=== PATIENT | male | born 1995 | race Hispanic/Latino ===

== ENCOUNTER 2017-03-17 11:46 | Emergency (ER) | payer BC ==
[2017-03-17 11:53] VITALS: BP 117/75; PULSE 66; RESP 19; TEMP 98.8; O2SAT 100
--- NOTE | 2017-03-17 12:16 | ED PDOC ---
HPI: General Adult Time Seen by Provider: 03/17/17 12:00 Chief Complaint (Nursing): Headache Chief Complaint (Provider): neck pain History Per: Patient History/Exam Limitations: no limitations Additional Complaint(s): 22yo male was playing hockey last night when he fell and was hit in the neck. States he heard a cracking sound and then experienced right shoulder numbness with some neck pain. Denies any pain to the shoulder. declines offer of analgesics stating he took advil prior to arrival which is working for him. Pt finished hockey game after injury. Numbness resolved yesterday. Past Medical History Reviewed: Historical Data, Nursing Documentation, Vital Signs Vital Signs: Last Vital Signs Temp 98.8 F 03/17/17 11:50 Pulse 66 03/17/17 11:50 Resp 19 03/17/17 11:50 BP 117/75 03/17/17 11:50 Pulse Ox 100 03/17/17 12:18 - Medical History PMH: No Chronic Diseases - Surgical History Surgical History: No Surg Hx - Family History Family History: States: Unknown Family Hx - Social History Current smoker - smoking cessation education provided: No Drugs: Denies - Home Medications Home Medications: Ambulatory Orders Medication Instructions Recorded Naproxen [Naprosyn] 500 mg PO BID PRN #15 tablet 03/17/17 - Allergies Allergies/Adverse Reactions: Allergies Allergy/AdvReac Type Severity Reaction Status Date / Time acetaminophen [From Tylenol] Allergy RASH Verified 03/17/17 11:53 Review of Systems ROS Statement: Except As Marked, All Systems Reviewed And Found Negative Musculoskeletal: Positive for: Neck Pain Neurological: Positive for: Numbness (shoulder) Physical Exam - Reviewed Nursing Documentation Reviewed: Yes Vital Signs Reviewed: Yes - Physical Exam Appears: Positive for: Well, Non-toxic, No Acute Distress Head Exam: Positive for: ATRAUMATIC, NORMAL INSPECTION, NORMOCEPHALIC Skin: Positive for: Warm, Dry Eye Exam: Positive for: EOMI, PERRL Neck: Positive for: Painless ROM (+upper thoracic cervical/ right paraspinal tenderness. no midline tenderness), Supple, Trachea Midline. Negative for: Decreased ROM, Limited ROM Cardiovascular/Chest: Positive for: Regular Rate, Rhythm Respiratory: Positive for: Normal Breath Sounds. Negative for: Rales, Rhonchi, Wheezing Gastrointestinal/Abdominal: Positive for: Soft. Negative for: Tenderness Extremity: Positive for: Normal ROM - ECG O2 Sat by Pulse Oximetry: 100 (RA) Pulse Ox Interpretation: Normal - CT Scan/US CT C-spine Other Rad Studies (CT/US): Radiology Report Reviewed (No evidence of acute compression fractures no retropulsed fragments. No evidence of large disc herniations or extradural masses/collections. Central canal and exit foramina are adequate throughout.) CT T-spine Other Rad Studies (CT/US): Radiology Report Reviewed (No acute fractures. No evidence of canal compromise. If symptoms persist, occult fracture, soft tissue -ligamentous , cord or nerve root injury suspected clinically, recommend followup MRI) Medical Decision Making Medical Decision Makin CT Neck ordered. Disposition - Clinical Impression Clinical Impression: Cervical sprain - Disposition Disposition: Routine/Home Disposition Time: 14:17 Condition: STABLE Additional Instructions: FOLLOW-UP WITH PMD WITHIN 2 DAYS FOR REEVALUATION. Prescriptions: Naproxen [Naprosyn] 500 mg PO BID PRN #15 tablet PRN Reason: Pain, Moderate (4-7) Instructions: Cervical Sprain (ED) Additional Comments - Additional Comments Additional Comments: Scribe Attestation: Documented by Aurelio Williamson acting as a scribe for Augustina Sandoval MD. Provider Scribe Attestation: All medical record entries made by the Scribe were at my direction and personally dictated by me. I have reviewed the chart and agree that the record accurately reflects my personal performance of the history, physical exam, medical decision making, and the department course for this patient. I have also personally directed, reviewed, and agree with the discharge instructions and disposition.
--- NOTE | 2017-03-17 13:20 | CT ---
PROCEDURE: CT cervical spine 03/17/2017 HISTORY: <Neck injury> COMPARISON: Neck injury. TECHNIQUE: Axial computed tomography images were obtained of the cervical spine without the use of intravenous contrast. Coronal and sagittal reformatted images were created and reviewed. Radiation dose: Total exam DLP = 462.5 mGy-cm. This CT exam was performed using one or more of the following dose reduction techniques: Automated exposure control, adjustment of the mA and/or kV according to patient size, and/or use of iterative reconstruction technique. FINDINGS: VERTEBRAE: No acute compression fractures no retropulsed fragments. The vertebral bodies exhibit normal stature and alignment. Facets normally aligned. . DISCS/SPINAL CANAL/NEURAL FORAMINA: Disc space heights are maintained. No evidence of disc herniation or significant disc bulge. Overall central bony canal and exit foramina appear adequate throughout. PARASPINAL SOFT TISSUES: Paraspinal soft tissues unremarkable. OTHER FINDINGS: Lung apices are clear. IMPRESSION: No evidence of acute compression fractures no retropulsed fragments. No evidence of large disc herniations or extradural masses/collections. Central canal and exit foramina are adequate throughout.
--- NOTE | 2017-03-17 13:41 | CT ---
PROCEDURE: CT thoracic spine 03/17/2017 HISTORY: Neck injury COMPARISON: No prior TECHNIQUE: Axial computed tomography images were obtained of the thoracic spine without intravenous contrast. Coronal and sagittal reformatted images were created and reviewed. Radiation dose: Total exam DLP = 833.89 left mGy-cm. This CT exam was performed using one or more of the following dose reduction techniques: Automated exposure control, adjustment of the mA and/or kV according to patient size, and/or use of iterative reconstruction technique. FINDINGS: VERTEBRAE: The current study reveals no acute compression fractures no retropulsed fragments. Vertebral bodies exhibit normal stature and alignment. Facets normally aligned. DISCS/SPINAL CANAL/NEURAL FORAMINA: Disc space heights are maintained. No disc herniation or significant disc bulges seen. No evidence of obvious extradural masses or collections. The overall central bony canal appears adequate as do the exit PARASPINAL SOFT TISSUES: Foramina. The paraspinal soft tissues are grossly unremarkable. OTHER FINDINGS: Small hiatal hernia. The visualized lung rodriguez are clear without evidence of contusion infiltrate or pneumothorax IMPRESSION: No acute fractures. No evidence of canal compromise. If symptoms persist, occult fracture, soft tissue -ligamentous , cord or nerve root injury suspected clinically, recommend followup MRI
== END 2017-03-17 14:40 | disposition home or self-care (01) ==
LOC: H.ER 11:46
DX: S13.4XXA Sprain of ligaments of cervical spine, initial encounter (principal); X50.9XXA Other and unspecified overexertion or strenuous movements or postures, initial encounter; Y92.328 Other athletic field as the place of occurrence of the external cause